=== PATIENT | female | born 1995 | race African-American/Black ===

== ENCOUNTER 2017-07-03 09:06 | Emergency (ER) | payer MEDICAID ==
[~2017-07-03] VITALS: Ht 160 cm; Wt 52.2 kg
[2017-07-03 10:15] VITALS: BP 117/76
== END 2017-07-03 10:40 | disposition home or self-care (01) ==
LOC: ER 09:06
DX: Z32.01 Encounter for pregnancy test, result positive (principal); J45.909 Unspecified asthma, uncomplicated; F17.210 Nicotine dependence, cigarettes, uncomplicated
CPT/HCPCS: 36415; 81025; 84702

== ENCOUNTER 2019-04-23 07:27 | Emergency (ER) | payer SELFPAY ==
[~2019-04-23] VITALS: Ht 165.1 cm; Wt 49.9 kg
== END 2019-04-23 07:31 | disposition expired ==
LOC: EDBD 07:27 → ER 07:27
DX: I46.9 Cardiac arrest, cause unspecified (principal); J96.01 Acute respiratory failure with hypoxia
CPT/HCPCS: 92950